=== PATIENT | male | born 1950 | race Two or more races ===

== ENCOUNTER → 2024-07-23 13:01 | Outpatient (REF) | payer MEDICARE, OTHER, SELFPAY | LOC: RCS 13:01 | PROVIDERS: ATTENDING PHYSICIAN Internal Medicine Cardiovascular Disease; FAMILY PHYSICIAN Internal Medicine | DX: R06.09 Other forms of dyspnea (principal); I50.30 Unspecified diastolic (congestive) heart failure | CPT/HCPCS: 93306; Q9950 ==

== ENCOUNTER → 2024-07-27 13:43 | Outpatient (REF) | payer MEDICARE, OTHER, SELFPAY | LOC: HWRAD 13:43 | PROVIDERS: ATTENDING PHYSICIAN Internal Medicine Cardiovascular Disease; FAMILY PHYSICIAN Internal Medicine | DX: I77.819 Aortic ectasia, unspecified site (principal) | CPT/HCPCS: 71250 ==

== ENCOUNTER → 2024-12-18 12:18 | Outpatient (REF) | payer MEDICARE, OTHER, SELFPAY ==
[2024-12-18 15:32] LABS: Blood Urea Nitrogen 52 mg/dl (9-20); Calcium 7.9 mg/dl (8.4-10.2); Carbon Dioxide 24 mmol/L (22-30); Chloride 105 mmol/L (98-107); Glucose 98 mg/dl (70-99); Potassium 4.1 mmol/L (3.5-5.1); Sodium 137 mmol/L (135-145); eGFR 25.41
== END ==
LOC: HWLAB 12:18
PROVIDERS: ATTENDING PHYSICIAN Internal Medicine Cardiovascular Disease; FAMILY PHYSICIAN Internal Medicine
DX: N28.9 Disorder of kidney and ureter, unspecified (principal)
CPT/HCPCS: 36415; 80048; 83880